=== PATIENT | male | born 1970 | race Caucasian/White ===

== ENCOUNTER 2022-05-13 09:45 | Day surgery (SDC) | payer MEDICAID, SELFPAY ==
--- NOTE | 2022-05-13 06:38 | W.PREOPHP ---
Assessment and Plan Assessment and plan (1) Constipation: Status: Acute Assessment and plan: Mr. Yen is a very pleasant 51-year-old gentleman who is here today because he has developed constipation around the time of his hernia repair.? He is wondering whether it has anything to do with his hernia repair.? He has never had a colonoscopy before.? He denies any fevers, diarrhea, melena, or hematochezia.? He has no family history of colon or rectal cancer that he is aware of.? His is with him today and she is concerned that he is also lost weight.? He has not had any nausea or vomiting.? He did try the lactulose and senna without much improvement in his symptoms.? Risks, benefits and complications have been reviewed. Complications include but are not limited to bleeding, pain, perforation, missed small lesion/polyp, sore throat, aspiration and adverse reaction to the medications. Questions were entertained and answered to their satisfaction and they wished to proceed. No guarantees were given or implied. Anesthesia: general (without airway) Previous surgical intolerances: No Previous surgical complications: No Pulmonary risk factors: age > 60 Date of surgery: TBD Planned procedure: Yes Sleep apnea risks: No Can climb one flight of stairs (12-13 steps) in less than 30 seconds without stopping and without symptoms: Yes The surgery proposed for this patient is: low risk Active cardiac conditions: none Active risk factors: none ASA (acetylsalicylic acid): not used Beta blockers: not used Proceed with colonoscopy under sedation (2) Left inguinal pain: Status: Acute Assessment and plan: Most likely due to injury to the ilioinguinal nerve or due to scar tissue. Will inject the area with Kenalog again today History of Present Illness Narrative: Mr. Yen is a very pleasant 51-year-old gentleman who is here today because he has developed constipation around the time of his hernia repair.? He is wondering whether it has anything to do with his hernia repair.? He has never had a colonoscopy before.? He denies any fevers, diarrhea, melena, or hematochezia.? He has no family history of colon or rectal cancer that he is aware of.? His is with him today and she is concerned that he is also lost weight.? He has not had any nausea or vomiting.? He did try the lactulose and senna without much improvement in his symptoms.? He had improvement in his left inguinal pain after the Kenalog injection. Patient would like another injection today if possible. Review of Systems All systems reviewed & are unremarkable except as noted in HPI and below PFSH All Active Problems Hernia (Chronic) Constipation (Acute) Left inguinal pain (Acute) Medical History Right lateral epicondylitis Surgical History H/O left inguinal hernia repair Social History Smoking/Tobacco Use Status: Current every day Tobacco Type: cigarettes Smoking risk assessment performed?: Yes Alcohol Intake: never Drug use: Daily Substance use type: marijuana Details: last used 05.12.22 smokes it Do you feel safe at home: Yes Do you feel safe in your relationship?: Yes Additional Social history: unable to assess privately Meds Allergies and Home Medications Allergies Allergy/AdvReac Type Severity Reaction Status Date / Time No Known Allergies Allergy Verified 05/13/22 10:08 Home Medications Medication Instructions Recorded Confirmed Type meclizine 25 mg tablet 25 mg PO DAILY PRN 04/03/22 05/13/22 History pseudoephedrine HCl 30 mg tablet 30 mg PO Q4H PRN 04/03/22 05/13/22 History bisacodyl 5 mg tablet,delayed 5 mg PO ONCE #4 tabs 05/07/22 05/13/22 Rx release (Dulcolax (bisacodyl)) polyethylene glycol 3350 17 17 g PO ONCE #238 grams 05/07/22 05/13/22 Rx gram/dose oral powder Exam Const General: cooperative, comfortable and no acute distress HENMT Head: normocephalic and atraumatic Resp Effort & Inspection: normal respiratory effort Auscultation: clear to auscultation bilaterally Cardio Rate: regular rate Rhythm: regular rhythm Heart Sounds: no gallops, no murmurs and no rubs
--- NOTE | 2022-05-13 06:46 | COLE_ITS ---
Colonoscopy Report Date of procedure: 05/13/22 Pre-op diagnosis general: Colon Cancer Screening and Constipation and post herni a repair pain Procedure: 1. Injection of Kenalog 40mg/ml 2. Colonoscopy with polypectomy and biopsy Surgeon: Kimmie Pichardo Anesthesia Type: General:No Airway Complications: None Disposition: same day Indications: Mr. Yen is a very pleasant 51-year-old gentleman who is here today because he has developed constipation around the time of his hernia repair.? He is wondering whether it has anything to do with his hernia repair.? He has never had a colonoscopy before.? He denies any fevers, diarrhea, melena, or hematochezia.? He has no family history of colon or rectal cancer that he is aware of.? His is with him today and she is concerned that he is also lost weight.? He has not had any nausea or vomiting.? He did try the lactulose and senna without much improvement in his symptoms.? Risks, benefits and complications have been reviewed. Complications include but are not limited to bleeding, pain, perforation, missed small lesion/polyp, sore throat, aspiration and adverse reaction to the medications. Questions were entertained and answered to their satisfaction and they wished to proceed. No guarantees were given or implied. Prep: Miralax/Dulcolax Procedure Start Time: 11:41 Procedure End Time: 12:04 Retraction Time: 10 minutes Procedure Description: The patient was seen in PACU. He had a Kenolog injection in the office 2-3 weeks ago and had good results regarding his post-inguinal hernia repair pain. We discussed dooing another injection. The area of most pain was identified. The skin was cleaned with Chlorhexadine. The subcutaneous tissue was infiltrated with 1 cc of kenalog mixed with 2 cc of 1% Lidocaine. After informed consent was obtained the patient was taken to the procedure room and placed in a left decubitous position. Monitors were applied and a time out was done. The patients name, date of , procedure, allergies to medications and metal in their body was reviewed. The patient was then sedated. Once sedated and comfortable a rectal exam was done. External exam was normal. Internal exam revealed a normal sphincter tone and no palpable masses. The prostate felt smooth. The scope was then introduced and retro-flexed. No internal hemorrhoids, polyps or masses were identified on retro-flexion. The scope was then advanced to the cecum without difficulty. The ileocecal vlave and appendiceal orifice were identified. There was a large diverticulum / mass opssite the ileocecal valve. A small bx was done and 2 vascular clipps were applied to close the mucosa. The prep was adequate. The scope was then slowly retracted over 10 minutes back into the rectum. Polyps were removed in the descending colon with cold forceps. There was no diverticulosis noted. The scope was removed and the patient was woken up and taken back to Same day surgery in stable condition. The patient tolerated the procedure well and there were no immediate complications.
--- NOTE | 2022-05-13 06:47 | W.PM.DSUDISC ---
Discharge Plan Disposition Patient Disposition: HOME Condition: Good Discharge Details Reason For Visit: Colonoscopy Attending Provider: Kimmie Pichardo Primary Care Provider: Unknown,Unknown Home Meds and New Rx's Prescriptions: Continued meclizine 25 mg tablet 25 mg PO DAILY PRN pseudoephedrine HCl 30 mg tablet 30 mg PO Q4H PRN Discontinued bisacodyl [Dulcolax (bisacodyl)] 5 mg tablet,delayed release (DR/EC) 5 mg PO ONCE Qty: 4 0RF Rx Instructions: Take according to provider's instructions for colonoscopy prep. polyethylene glycol 3350 17 gram/dose powder 17 g PO ONCE Qty: 238 0RF Rx Instructions: To be taken as directed by prescriber's office for colonoscopy prep. Discharge Instructions Instructions: Colorectal Polyps (DC), Constipation (DC) Additional Instructions: Findings: One polyp Follow up: as needed For Constipation: 1. at least 64 oz of fluid a day 2. Try Miralax 17 gm 1 to 2 x a day 3. High fiber diet 4. Aerobic excersise Please call if you develop: fevers >101.5 Nausea or Vomiting Abdominal pain that is not transient Rectal bleeding that is more then a tbsp A hard abdomen and inability to pass gas DAY SURGERY UNIT POST ENDOSCOPY INSTRUCTIONS Instructions for everyone who is given Anesthesia: For your safety, please do the following for the next 24 Hours: a. Do not drive or operate dangerous equipment b. Do not drink alcohol beverages or use any recreational drugs for the first 24 hours or while taking pain medications. The medications in your body may have a reaction that can be dangerous. c. Do not make any important decisions or sign any important papers 1. Generally there are no restrictions on your activity after a day or so has gone by, but you may feel a bit fatigued for a few days. 2. After you arrive home you may have a light meal and return to a normal diet as you can tolerate it without feeling sick to your stomach. 3. After surgery, you may feel pain or discomfort. This should be only transient, but if it persists please contact your doctor. 4. If there are any questions regarding the findings of your procedure, please feel free to contact your doctor. 6. If you are unable to contact your doctor with a problem, contact the hospital at [phone]. 7. Continue all your regular medications unless directed otherwise. I understand the above instructions and have no questions. Signature of Patient or Responsible Adult Escort Date/Time Name of Responsible Adult Escort Signature of Nurse Date/Time Activity:: Activity as Tolerated Diet:: As Tolerated Discharge Orders Discharge Orders: Discharge Order (Routine); Ordered 05/13/22 Ordered By: Kimmie Pichardo DS: Diagnosis Discharge Diagnosis (1) Constipation: Status: Acute
[2022-05-13 09:58] VITALS: BP 100/69; PULSE 78; RESP 17; TEMP 36.2; O2SAT 99
[2022-05-13] MEDS: Lactated Ringers 1,000 ML 80 ML IV (10:31)
--- NOTE | 2022-05-13 10:49 | ANES.PREOP_ITS ---
General Info Date of Service Date Performed: 05/13/22 Height: 6 ft 2 in Weight: 61.9 kg Body Mass Index (BMI): 17.5 Surgical Procedure: Operation Date: 05/13/22 10:35 Proposed Procedure Side Surgeon p Colonoscopy Kimmie Pichardo MD Meds Allergies and Home Medications Allergies Allergy/AdvReac Type Severity Reaction Status Date / Time No Known Allergies Allergy Verified 05/13/22 10:08 Home Medication Medication Instructions Recorded meclizine 25 mg tablet 25 mg PO DAILY PRN 04/03/22 pseudoephedrine HCl 30 mg tablet 30 mg PO Q4H PRN 04/03/22 bisacodyl 5 mg tablet,delayed 5 mg PO ONCE #4 tabs 05/07/22 release (Dulcolax (bisacodyl)) polyethylene glycol 3350 17 17 g PO ONCE #238 grams 05/07/22 gram/dose oral powder Current Visit Medications: Current Medications Generic Name Dose Route Start Last Admin Trade Name Freq PRN Reason Stop Dose Admin Hyoscyamine Sulfate 0.125 mg 05/13/22 06:47 Hyoscyamine 0.125 Mg Sl/Oral/Chew SL DIRECTED PRN Ringer's Solution 1,000 mls @ 80 mls/hr 05/13/22 06:00 05/13/22 10:31 IV 06/11/22 23:59 80 mls/hr INFUSION [facility] Administration IV Miscellaneous Supplies 1 each 05/13/22 06:00 Iv Access IV 06/11/22 23:59 DIRECTED [facility] Ondansetron HCl 4 mg 05/13/22 06:47 Ondansetron 4 Mg/2 Ml Vial IVP Q4H PRN PRN Nausea / Vomiting Sodium Chloride 0 ml 05/13/22 06:00 Normal Saline Flush 10 Ml Syr IV 06/11/22 23:59 PRN PRN Sodium Chloride 0 ml 05/13/22 06:00 Normal Saline 10 Ml Vial IJ 06/11/22 23:59 DIRECTED PRN Sterile Water 0 ml 05/13/22 06:00 Water,Injection,Sterile 10 Ml Vial IJ 06/11/22 23:59 DIRECTED PRN Triamcinolone Acetonide 10 mg 05/13/22 09:00 Triamcinolone 40 Mg/Ml Vial IJ DIRECTED [facility] PFS Active Problems Active Problems: Problem Status Onset Code Hernia K46.9 Constipation K59.00 Left inguinal pain R10.32 Medical History Medical History Right lateral epicondylitis Medical History Comments:: Daily marijauna use for anxiety Surgical History Surgical History H/O left inguinal hernia repair Tobacco Smoking/Tobacco Use Status: Current every day Tobacco Type: cigarettes Alcohol Alcohol Intake: never Substance Use Substance use: Daily Substance use type: marijuana Details: last used 05.12.22 smokes it Vital Signs and Lab Results Vital Signs Most Recent Vital Signs in EMR: Most Recent Vital Signs Temp Pulse Resp BP Pulse Ox 36.2 C L 78 17 100/69 99 05/13/22 09:58 05/13/22 09:58 05/13/22 09:58 05/13/22 09:58 05/13/22 09:58 Lab Results Blood Type / Crossmatch: No Data to Display Complete Blood Count: No Data to Display Complete Metabolic Panel: No Data to Display Liver Function Panel: No Data to Display Coagulation Panel: No Data to Display Cardiac Panel: No Data to Display Arterial Blood Gas: No Data to Display Venous Blood Gas: No Data to Display Pancreas Panel: No Data to Display Thyroid Panel: No Data to Display Infectious Disease: No Data to Display Blood Cultures: No Data to Display Toxicology Panel: No Data to Display Anesthesia Assessment and Plan Anesthesia History Personal History: No History of Anesthesia Complications Family History: Family History Unknown Exercise Tolerance Exercise Tolerance: Metabolic Equivalents>4 Pertinent Negatives Pertinent Negatives: No Symptoms of GERD Cardiac & Pulmonary Exam Cardiac Exam: Normal S1/S2 Heart Sounds Pulmonary Exam: Clear Bilateral Breath Sounds Implantable Cardiac Device Does patient have a Pacemaker or an ICD?: No Airway Exam Known Difficult Airway: No Mallampati Class: 1 Mouth Opening: Normal (> 3cm) Thyromental Distance: Greater than 3 cm Neck Range of Motion: Full ROM Neck Circumference: Normal Teeth Condition: Normal Dentition ASA Classification ASA Score: ASA 2 Emergency Case?: No NPO Status NPO Status: NPO Clears >2 hours, Solids >8 hours Anesthesia Plan Resuscitation Status: Full Code Anesthesia Technique: General Anesthesia Airway Planned: Natural Airway Monitors Used: Standard Monitors
[2022-05-13 10:59] VITALS: BMI 17.5
--- NOTE | 2022-05-13 11:54 | BOWEL_PTH ---
PATIENT: Josias Martines LOC: [facility] U#:[id number] AGE/SX: 51/M ROOM: RE05/13/[address]: Kimmie Pichardo MD : [id number] BED: DIS: 05/13/2022 SPEC #: [id number] RECD: 05/13/22 12:47 STATUS: [place] REQ #: [id number] PAL[place]O: 05/13/22 11:[address]: Kimmie Pichardo DEPT: Surgical Specimen RECD BY: Jelena Dickerson ENTERED: 05/13/22 12:47 SP TYPE: Bowel OTHR DR: Unknown,Unknown Tissues: 1 - BIOPSY BOWEL 2 - BIOPSY BOWEL Procedures: GROSS AND MICRO LEVEL 4 Comments: [id number]
[2022-05-13 12:10] VITALS: BP 131/77; PULSE 51; RESP 24; TEMP 36; O2SAT 99
[2022-05-13 12:41] VITALS: BP 109/76; PULSE 56; RESP 18; TEMP 35.9; O2SAT 98
--- NOTE | 2022-05-13 14:12 | W.ANESPOSTOP ---
Postoperative Evaluation Date, Time and Location Date Performed: 05/13/22 Time Performed: 12:45 Patient Location: Day Surgery Unit Vital Signs Most Recent Imported Vital Signs: Most Recent Vital Signs Temp Pulse Resp BP Pulse Ox 35.9 C L 56 L 18 109/76 98 05/13/22 12:41 05/13/22 12:41 05/13/22 12:41 05/13/22 12:41 05/13/22 12:41 Pain Score Most Recent Pain Score: Most Recent Pain Score Pain Level 0 05/13/22 12:41 Assessment Mental Status: Awake (Alert & Oriented to Patient Baseline) Airway and Respiratory Function: Patent airway with normal (patient baseline) respiratory exam Cardiovascular Function: Hemodynamically Stable Hydration Status: Adequately Hydrated Nausea & Vomiting: No Nausea or Vomiting Pain: Pt. Denies Any Pain Peripheral Nerve Block: Patient did not receive a nerve block
== END 2022-05-13 13:13 | disposition home or self-care (01) ==
PROVIDERS: Visit Provider Surgery
PROC: 0DJD8ZZ Inspection of Lower Intestinal Tract, Via Natural or Artificial Opening Endoscopic (ICD-10-PCS; CPT 45378; principal; 2022-05-13 10:30)
DX: K59.00 Constipation, unspecified (principal); R63.4 Abnormal weight loss; K63.89 Other specified diseases of intestine; K63.5 Polyp of colon; Z68.1 Body mass index [BMI] 19.9 or less, adult
CPT/HCPCS: 45380; 88305